=== PATIENT | male | born 1985 | race Hispanic/Latino ===

== ENCOUNTER 2019-06-19 13:25 | Emergency (ER) | payer BC, OTHER ==
[2019-06-19 14:10] LABS: AMPHET/METH SCREEN,URINE NEGATIVE (NEGATIVE); BARBITURATE SCREEN, URINE NEGATIVE (NEGATIVE); BENZODIAZEPINES SCREEN,URINE NEGATIVE (NEGATIVE); CANNABINOID SCREEN,URINE NEGATIVE (NEGATIVE); COCAINE SCREEN,URINE NEGATIVE (NEGATIVE); OPIATE SCREEN,URINE NEGATIVE (NEGATIVE); PHENCYCLIDINE SCREEN,URINE NEGATIVE (NEGATIVE)
[2019-06-19] MEDS ORDERED: KETOROLAC TROMETHAMINE 30MG/ML ONE (14:15)
[2019-06-19] MEDS ORDERED: SODIUM CHLORIDE 0.9% 500ML 500 ML IV ONE (14:15)
== END 2019-06-19 16:01 | disposition home or self-care (01) ==
LOC: EDH 13:25
DX: S01.01XA Laceration without foreign body of scalp, initial encounter (principal); V49.40XA Driver injured in collision with unspecified motor vehicles in traffic accident, initial encounter; Y93.89 Activity, other specified; Y92.89 Other specified places as the place of occurrence of the external cause; Y99.8 Other external cause status
CPT/HCPCS: 36415; 70450; 71045; 72125; 80305; 96374; 99285; G0480; J1885; J7040

== ENCOUNTER 2021-10-03 20:49 | Emergency (ER) | payer BC, OTHER ==
[~2021-10-03] VITALS: Ht 167.6 cm; Wt 102.1 kg
[2021-10-03 21:55] LABS: BASOPHILS % (AUTO) 0.8 % (0.0-5.0); EOSINOPHILS % (AUTO) 2.5 % (0.0-8.0); HEMATOCRIT 49.2 % (42-54); LYMPHOCYTES % (AUTO) 32.7 % (21.0-51.0); MEAN CORPUSCULAR HEMOGLOBIN 28.3 pg (27.0-33.0); MEAN CORPUSCULAR HGB CONC 33.9 g/dL (32.0-36.0); MEAN CORPUSCULAR VOLUME 83.2 fL (79-99); MONOCYTES % (AUTO) 5.1 % (3.0-13.0); NEUTROPHILS % (AUTO) 58.6 % (40.0-77.0); PLATELET COUNT (AUTO) 276 K/uL (130-400); RED BLOOD CELL COUNT(AUTO) 5.91 MIL/uL (4.50-6.20); RED CELL DISTRIBUTION WIDTH 12.1 % (11.0-15.5); WHITE BLOOD COUNT (AUTO) 11.9 K/uL (4.8-10.8)
[2021-10-03 22:03] LABS: APPEARANCE,URINE Clear (CLEAR); BILIRUBIN,URINE Negative (NEGATIVE); COLOR,URINE Yellow (YELLOW); GLUCOSE, URINE (UA) >=1000 mg/dL (NEGATIVE); KETONES,URINE 15 mg/dL (NEGATIVE); LEUKOCYTE ESTERASE ,URINE Negative (NEGATIVE); NITRATE,URINE Negative (NEGATIVE); OCCULT BLOOD,URINE Negative (NEGATIVE); PROTEIN,URINE Negative (NEGATIVE)
[2021-10-03 22:07] LABS: BACTERIA,URINE None Seen /HPF (None Seen); RBC,URINE None Seen /HPF (0-1); SQUAMOUS EPITHELIAL CELL,UR None Seen /HPF (0-2); WBC,URINE 0-1 /HPF (0-1)
[2021-10-03 22:08] LABS: CREATININE 0.8 mg/dL (0.5-1.5); POTASSIUM 3.9 mmol/L (3.5-5.1)
[2021-10-03] MEDS ORDERED: KETOROLAC 30MG VIAL (30MG/ML) ONE (23:40)
[2021-10-04] MEDS ORDERED: KETOROLAC 30MG VIAL (30MG/ML) IV ONE
[2021-10-04] MEDS: MORPHINE 4 MG SYG ONE ×2 (00:12→00:19)
[2021-10-04] MEDS: ONDANSETRON 4MG INJ ONE ×2 (00:12→00:19)
[2021-10-04] MEDS ORDERED: ONDANSETRON 4MG INJ IVP ONE ×2 (00:30)
[2021-10-04] MEDS ORDERED: MORPHINE 4 MG SYG IV ONE ×2 (00:30)
[2021-10-04 01:08] VITALS: BP 122/73
[2021-10-04] MEDS ORDERED: TRAM-355 PO (01:08)
== END 2021-10-04 01:23 | disposition home or self-care (01) ==
LOC: EDH 20:49
DX: N43.3 Hydrocele, unspecified (principal); E11.65 Type 2 diabetes mellitus with hyperglycemia; Z79.1 Long term (current) use of non-steroidal anti-inflammatories (NSAID); Z79.899 Other long term (current) drug therapy
CPT/HCPCS: 36415; 76870; 80048; 81001; 85025; 96374; 96375; 99284; J1885; J2270; J2405

== ENCOUNTER 2023-05-12 13:09 | Emergency (ER) | payer BC ==
[~2023-05-12] VITALS: Ht 172.7 cm; Wt 103.0 kg
[~2023-05-12 13:09] MED LIST: TRAM-355 PO
[2023-05-12] MEDS ORDERED: KETOROLAC 30MG VIAL (30MG/ML) IM ONE (14:00)
[2023-05-12 14:02] VITALS: BP 152/107; PULSE 96; RESP 16
[2023-05-12 14:14] LABS: BASOPHILS # (AUTO) 0.08 K/uL (0.00-0.20); BASOPHILS % (AUTO) 0.6 % (0.0-5.0); EOSINOPHILS # (AUTO) 0.21 K/uL (0.00-0.70); EOSINOPHILS % (AUTO) 1.6 % (0.0-8.0); HEMATOCRIT 47.6 % (42-54); IMMATURE GRANULOCYTE ABSOLUTE 0.03 K/uL (0-1); LYMPHOCYTES # (AUTO) 3.3 K/uL (1.0-4.8); LYMPHOCYTES % (AUTO) 25.6 % (21.0-51.0); MEAN CORPUSCULAR HEMOGLOBIN 28.2 pg (27.0-33.0); MEAN CORPUSCULAR VOLUME 82.8 fL (79-99); MONOCYTES # (AUTO) 0.6 K/uL (0.1-1.0); MONOCYTES % (AUTO) 4.8 % (3.0-13.0); NEUTROPHILS # (AUTO) 8.6 K/uL (1.8-7.7); NEUTROPHILS % (AUTO) 67.2 % (40.0-77.0); PLATELET COUNT (AUTO) 281 K/uL (130-400); RED BLOOD CELL COUNT(AUTO) 5.75 MIL/uL (4.50-6.20); RED CELL DISTRIBUTION WIDTH 12.5 % (11.0-15.5); WHITE BLOOD COUNT (AUTO) 12.8 K/uL (4.8-10.8)
[2023-05-12 14:28] LABS: CREATININE 0.8 mg/dL (0.5-1.5); POTASSIUM 4.2 mmol/L (3.5-5.1)
[2023-05-12 14:33] LABS: ALBUMIN 3.8 g/dL (3.5-5.0); BILIRUBIN,TOTAL 0.8 mg/dL (0.2-1.0); TOTAL PROTEIN, SERUM 7.4 g/dL (6.0-8.3)
[2023-05-12] MEDS ORDERED: INSULIN HUMULIN R 100 UNIT/ML 3ML IV ONE ×2 (16:00→18:30)
[2023-05-12] MEDS ORDERED: 0.9%NACL 1000ML 1,000 ML IV ONE ×2 (16:00→18:30)
[2023-05-12] MEDS ORDERED: GLIP10TA9 PO (17:07)
[2023-05-12] MEDS ORDERED: MORPHINE 4 MG SYG IVP ONE (18:30)
[2023-05-12] MEDS ORDERED: ONDANSETRON 4MG INJ IVP ONE (18:30)
== END 2023-05-12 19:49 | disposition home or self-care (01) ==
LOC: EDH 13:09
DX: M54.6 Pain in thoracic spine (principal); E11.65 Type 2 diabetes mellitus with hyperglycemia; Z79.899 Other long term (current) drug therapy
CPT/HCPCS: 99285; 72125; 96374; 96361; 71045; 96375; 84484; 80053; 85025; 82948 ×2; 36415; 72128; 96376; 93005; 96372; J1815 ×2; J7030 ×2; J2405; J2270; J1885